=== PATIENT | male | born 1975 | race Native Hawaiian/Other Pacific Islander ===

== ENCOUNTER 2018-02-18 13:16 | Emergency (ER) | payer OTHER ==
[~2018-02-18] VITALS: Ht 182.9 cm; Wt 81.6 kg
[2018-02-18 14:14] LABS: PLATELET COUNT 125 K/uL (142-355)
[2018-02-18 15:10] LABS: PARTIAL THROMBOPLASTIN TIME 39.7 SECONDS (24.5-33.6)
[2018-02-18 16:43] VITALS: BP 128/78; TEMP 98.2
== END 2018-02-18 16:43 | disposition home or self-care (01) ==
LOC: ED 13:16
PROVIDERS: Emergency Medicine
DX: R10.32 Left lower quadrant pain (principal); R79.1 Abnormal coagulation profile
CPT/HCPCS: 80053; 82150; 83690; 85027; 85610; 85730; 99283; Q9963